=== PATIENT | female | born 1960 | race Two or more races ===

== ENCOUNTER 2019-03-15 17:26 | Emergency (ER) | payer OTHER ==
[~2019-03-15] VITALS: Ht 152.4 cm; Wt 77.1 kg
[~2019-03-15 17:26] MED LIST: IBUP200T77 PO; LISI10TA2 PO
[2019-03-15 18:00] VITALS: BP 171/92
--- NOTE | 2019-03-15 18:22 | PHYS DOC ---
Past Medical History Past Medical History: No Pertinent History Alcohol Use: None Drug Use: None Adult General Chief Complaint Chief Complaint: MECHANICAL FALL HPI HPI Patient is a 59 year old female who presents with injury after slip and fall. States she fell from standing at [employer], fell back, struck the back of her head and left elbow. no LOC. no vomiting or neck pain. c/o posterior headache and left elbow pain. No wounds. 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 She is resting in no distress Review of Systems Review of Systems Constitutional: Denies fever or chills [] Eyes: Denies change in visual acuity, redness, or eye pain [] HENT: Denies nasal congestion or sore throat [] Respiratory: Denies cough or shortness of breath [] Cardiovascular: No additional information not addressed in HPI [] GI: Denies abdominal pain, nausea, vomiting, bloody stools or diarrhea [] Musculoskeletal: Denies back pain. C/o left elbow pain Integument: Denies rash or skin lesions [] Neurologic: Denies focal weakness or sensory changes []c/o posterior headache Endocrine: Denies polyuria or polydipsia [] All other systems were reviewed and found to be within normal limits, except as documented in this note. Current Medications Current Medications Current Medications Medications (Trade) Dose Ordered Sig/Basim Start Time Stop Time Status Last Admin Dose Admin Acetaminophen (Tylenol) 1,000 mg 1X ONCE 03/15/19 18:30 03/15/19 18:31 DC 03/15/19 19:06 1,000 MG Allergies Allergies Allergies Coded Allergies Type Severity Reaction Last Updated Verified No Known Drug Allergies 10/08/13 No Physical Exam Physical Exam Constitutional: Well developed, well nourished, no acute distress, non-toxic appearance. [] HENT: Normocephalic, atraumatic, bilateral external ears normal, oropharynx mois t, no oral exudates, nose normal. []reports she has a "bump" to the posterior occiput, not palpated, no area of TTP, no crepitus Eyes: PERRLA, EOMI, conjunctiva normal, no discharge. [] Neck: Normal range of motion, no tenderness, supple, no stridor. [] Cardiovascular:Heart rate regular rhythm, no murmur [] Lungs & Thorax: Bilateral breath sounds clear to auscultation [] Abdomen: Bowel sounds normal, soft, no tenderness, no masses, no pulsatile masses. [] Skin: Warm, dry, no erythema, no rash. [] Back: No tenderness, no CVA tenderness. [] Extremities: no cyanosis, no clubbing, ROM intact, no edema. [] C/o posterior left elbow TTP, no swelling or signs of trauma. intact pulses and distal cap refill Neurologic: Alert and oriented X 3, normal motor function, normal sensory function, no focal deficits noted. [] Psychologic: Affect normal, judgement normal, mood normal. [] Current Patient Data Vital Signs Vital Signs Date Time Temp Pulse Resp B/P (MAP) Pulse Ox O2 Delivery O2 Flow Rate FiO2 03/15/19 18:00 98.0 76 171/92 (118) 98 Room Air 98.0 EKG EKG [] Radiology/Procedures Radiology/Procedures [] PATIENT: MEL MOHAN ACCOUNT: [id number] : 1960 LOCATION: ER AGE: 59 SEX: F EXAM STATUS: REG ER ORD. PHYSICIAN: AISSATOU EPPERSON APRN REASON: fall, head injury PROCEDURE: CT HEAD WO CONTRAST PQRS Compliance Statement: One or more of the following individualized dose reduction techniques were utilized for this examination: 1. Automated exposure control 2. Adjustment of the mA and/or kV according to patient size 3. Use of iterative reconstruction technique CT head without contrast 03/15/2019 6:15 PM INDICATION: Fall, head injury COMPARISON: None available TECHNIQUE: Multiple axial CT images of the head were obtained from skull base through the vertex without intravenous contrast. FINDINGS: Head: Ventricles, sulci and basal cisterns are within normal limits. There is no hydrocephalus. Levin-white matter differentiation is normal. There is no acute intracranial hemorrhage. There is no mass, mass effect or midline shift. Posterior fossa is normal in appearance. Visualized portions of the orbits are normal. Paranasal sinuses are well aerated. Mastoid air cells are well aerated. There is osseous protuberance which communicates with the outer table of the right frontal calvaria at the frontal vertex measuring 16 x 16 mm compatible with an osteoma. IMPRESSION: No acute intracranial hemorrhage. 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 Electronically signed by: Mariela Ivey MD (03/15/2019 6:53 PM) [facility] DICTATED and SIGNED BY: MARIELA IVEY MD DATE: 03/15/191852 Xray left elbow: no acute finding, EP interpretation Impressions: Fall, closed head injury, left elbow contusion Course & Med Decision Making Course & Med Decision Making Pertinent Labs and Imaging studies reviewed. (See chart for details) []Patient appears well, Tylenol for pain CT head and xray left elbow: WNL OTC medications for pain, RICE. Stable for home care. No further pain, remains with no deficit. Educated on home care fu and reasons to return to the ER Dragon Disclaimer Dragon Disclaimer This electronic medical record was generated, in whole or in part, using a voice recognition dictation system. Departure Departure Impression: Primary Impression: Fall Additional Impressions: Elbow pain, left Head injury, closed Disposition: 01 HOME, SELF-CARE Condition: STABLE Referrals: DEBBIE BLAND MD (PCP) Patient Instructions: Elbow Contusion, [id number] Additional Instructions: Go home and rest Ice to painful areas Over the counter medications for pain Call your doctor for follow up, return for any concerns or worsening symptoms Problem Qualifiers Primary Impression: Fall Encounter type: initial encounter Qualified Codes: W19.XXXA - Unspecified fall, initial encounter Additional Impressions: Head injury, closed Encounter type: initial encounter Qualified Codes: S09.90XA - Unspecified injury of head, initial encounter AISSATOU EPPERSON APRN Mar 15, 2019 18:22
[2019-03-15] MEDS ORDERED: ACETAMINOPHEN 500 MG TABLET PO ONE (18:30)
--- NOTE | 2019-03-15 18:56 | RAD ---
RS Compliance Statement: One or more of the following individualized dose reduction techniques were utilized for this examination: 1. Automated exposure control 2. Adjustment of the mA and/or kV according to patient size 3. Use of iterative reconstruction technique CT head without contrast 03/15/2019 6:15 PM INDICATION: Fall, head injury COMPARISON: None available TECHNIQUE: Multiple axial CT images of the head were obtained from skull base through the vertex without intravenous contrast. FINDINGS: Head: Ventricles, sulci and basal cisterns are within normal limits. There is no hydrocephalus. Levin-white matter differentiation is normal. There is no acute intracranial hemorrhage. There is no mass, mass effect or midline shift. Posterior fossa is normal in appearance. Visualized portions of the orbits are normal. Paranasal sinuses are well aerated. Mastoid air cells are well aerated. There is osseous protuberance which communicates with the outer table of the right frontal calvaria at the frontal vertex measuring 16 x 16 mm compatible with an osteoma. IMPRESSION: No acute intracranial hemorrhage. 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 Electronically signed by: Marlene Sr MD (03/15/2019 6:53 PM) [facility]
--- NOTE | 2019-03-16 00:50 | RAD ---
Indication: Fall. TECHNIQUE: 3 views of the left elbow COMPARISON: None Findings/ impression: No acute fracture or dislocation. No joint effusion. Electronically signed by: Hipolito Duncan DO (03/16/2019 12:48 AM) [facility]
== END 2019-03-15 19:39 | disposition home or self-care (01) ==
LOC: ER 17:26
DX: S09.8XXA Other specified injuries of head, initial encounter (principal); M25.522 Pain in left elbow; W01.0XXA Fall on same level from slipping, tripping and stumbling without subsequent striking against object, initial encounter; Y93.89 Activity, other specified; Y92.89 Other specified places as the place of occurrence of the external cause; Y99.8 Other external cause status
CPT/HCPCS: 70450; 73080; 99284